=== PATIENT | male | born 1985 | race Caucasian/White ===

== ENCOUNTER 2017-11-04 13:59 | Emergency (ER) | payer SELFPAY ==
[~2017-11-04] VITALS: Ht 185.4 cm; Wt 80.0 kg
[~2017-11-04 13:59] MED LIST: ERYT333T19 PO; TYLCOD5S PO; Z.0.NO CURRENT MEDS
[2017-11-04 14:09] VITALS: BP 127/66; PULSE 96; RESP 16; TEMP 97.6; O2SAT 97
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
[2017-11-04] MEDS ORDERED: IBUP1TAB7 PO (16:00)
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
== END 2017-11-04 16:26 | disposition home or self-care (01) ==
LOC: NEPK 13:59
DX: S89.92XA Unspecified injury of left lower leg, initial encounter (principal); M25.462 Effusion, left knee; X50.9XXA Other and unspecified overexertion or strenuous movements or postures, initial encounter
CPT/HCPCS: 73564; 99283; E0113; L1830